=== PATIENT | male | born 1960 | race Caucasian/White ===

== ENCOUNTER 2021-12-27 10:24 | Day surgery (SDC) | payer OTHER ==
[~2021-12-27] VITALS: Ht 162.6 cm; Wt 55.0 kg
[~2021-12-27 10:24] MED LIST: AMLO-258 PO; ASPI-1450 PO; ATOR40TA28 PO; INSU100I3 SQ.; LOSA-381 PO; METF-1211 PO; SODIUM CHLORIDE 0.9% 1,000 ML ONE
[2021-12-27] MEDS ORDERED: SODIUM CHLORIDE 0.9% 1,000 ML IV ONE (10:30)
[2021-12-27 10:52] LABS: COVID AG,FIA SOURCE NASAL SWAB
[2021-12-27 11:46] LABS: GLUCOMETER DEV NAME(LOC) SDS.; GLUCOSE,POINT OF CARE 111 MG/DL (70-110)
== END 2021-12-27 14:35 | disposition home or self-care (01) ==
LOC: SURGERY 10:24
PROVIDERS: ATTEND Internal Medicine Gastroenterology
DX: Z12.11 Encounter for screening for malignant neoplasm of colon (principal); K64.8 Other hemorrhoids; I10 Essential (primary) hypertension; E78.5 Hyperlipidemia, unspecified; E11.9 Type 2 diabetes mellitus without complications; Z86.73 Personal history of transient ischemic attack (TIA), and cerebral infarction without residual deficits; Z79.899 Other long term (current) drug therapy; Z98.890 Other specified postprocedural states; Z79.82 Long term (current) use of aspirin
CPT/HCPCS: 45378; 82962; 87426; 93005; C9803; J7030